=== PATIENT | male | born 1975 | race Caucasian/White ===

== ENCOUNTER → 2016-06-27 | Outpatient (CLI) | payer BC ==
--- NOTE | 2016-06-27 14:38 | DIAGNOSTIC IMAGING REPORT ---
MRI THE RIGHT SHOULDER NO CONTRAST CLINICAL HISTORY: Right shoulder pain COMPARISON STUDY: No previous studies for comparison. FINDINGS: The patient was imaged in the sagittal coronal and axial planes. There are no areas of marrow replacement to indicate occult fracture. There is no evidence of rotator cuff tear or significant tendinopathy. The bicipital tendon appears normal. There is an equivocal superior labral tear. This would be better evaluated with an arthrographic study. IMPRESSION: 1. No evidence of rotator cuff tear 2. No evidence of bicipital tendon tear 3. No evidence of occult fracture or suspicious marrow replacement 4. Equivocal superior labral tear. This would be better evaluated with a arthrographic study. Electronically signed by: Kwan Harris M.D. 06/27/2016 2:37 PM Dictated Date/Time: 06/27/2016 2:33 PM
== END | disposition home or self-care (01) ==
LOC: C.MRIBC 12:39
PROVIDERS: ATTEND Orthopaedic Surgery
DX: M75.21 Bicipital tendinitis, right shoulder (principal)